=== PATIENT | male | born 1950 | race Caucasian/White ===

== ENCOUNTER → 2017-02-02 | Outpatient (CLI) | payer OTHER ==
[~2017-02-02] VITALS: Ht 165.1 cm; Wt 91.8 kg
[~2017-02-02] MED LIST: AMLODIPINE BESY10 MG PO; BACTRIM,SEPT1 TABLET PO; BICALUTAMIDE50 MG PO; CIPRO500 MG PO; FLOMAX0.4 MG PO; LOPRESSOR25 MG PO; LUPRON DEPOT45 MG IM; PYRIDIUM100 MG PO; SIMVASTATIN20 MG PO; ZESTORETIC 20-1 EAC1 NG
[2017-02-02 13:41] VITALS: BP 142/78
[2017-02-02 14:28] LABS: HEMATOCRIT 37.4 % (38.0-50.0); MCH 29.5 PG (29.0-34.0); MEAN PLAT.VOLUME 10.1 uM^3 (9.0-12.4); PLATELET COUNT 200 K/uL (156-360); RBC DIS.WIDTH-CV 12.3 % (11.8-14.6); RBC DIS.WIDTH-SD 39.5 % (39-53); WHITE BLOOD COUNT 10.3 K/uL (4.1-10.2)
[2017-02-02 14:39] LABS: CHLORIDE 101 mEq/L (99-109); POTASSIUM 3.3 mEq/L (3.7-5.4); SODIUM 132 mEq/L (136-147)
[2017-02-02 14:41] LABS: GLUCOSE 152 mg/dL (70-99)
[2017-02-02 14:43] LABS: ANION GAP 9 MEQ/L (2-14)
[2017-02-02 14:45] LABS: GFR ESTIMATE (CALCULATED) > 59 mL/min/
[2017-02-02 14:46] LABS: UREA NITROGEN (BUN) 16 mg/dL (9-23)
== END | disposition home or self-care (01) ==
LOC: EME 13:32 → EDSTATUS 15:15 → LAB 15:33
PROVIDERS: Nurse Practitioner Family
DX: Z47.1 Aftercare following joint replacement surgery (principal); Z96.659 Presence of unspecified artificial knee joint
CPT/HCPCS: 80048; 85027; 86900; 86901; 99281; 99284